=== PATIENT | female | born 1980 | race African-American/Black ===

== ENCOUNTER 2017-02-04 08:50 | Inpatient (IN) | payer OTHER ==
[2017-02-04] MEDS ORDERED: CITRIC ACID/SODIUM CITRATE 30 ML UNIT-DOSE CUP PO ONE (09:57)
[2017-02-04] MEDS ORDERED: ELECTROLYTE-148 SOLN 1,000 ML IV SCH (10:00)
[2017-02-04 10:11] VITALS: BMI 37.5
[2017-02-04 10:44] LABS: BASOPHIL 0.5 % (0-2.0); EOSINOPHIL 2.4 % (0-4.5); MCH 24.5 pg (25.7-33.7); MCHC 31.9 g/dl (32.0-36.0); MEAN CELL VOLUME 76.7 fl (80-96); MEAN PLT VOLUME 11.6 fl (7.5-11.1); NEUTROPHILS 62.6 % (42.8-82.8); PLATELET COUNT 50 K/MM3 (134-434); RDW 13.7 % (11.6-15.6); WHITE BLOOD COUNT 7.2 K/mm3 (4.0-10.0)
[2017-02-04] MEDS ORDERED: ELECTROLYTE-148 SOLN 1,000 ML IV ONE (10:45)
[2017-02-04 11:23] LABS: PLATELET ESTIMATE DECREASED (NORMAL)
[2017-02-04 11:24] LABS: PLATELET COMMENT2 FEW LARGE PLTS
[2017-02-04] MEDS ORDERED: TUBERCULIN PPD 5 TU/0.1ML SYRINGE (IN PATIENT USE ONLY) ID ONE (11:30)
--- NOTE | 2017-02-04 11:36 | HP ---
Past Medical History - Admission Chief Complaint: Previous CS x 2. 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 Maternal obesity History Source: Patient - Past Medical History ...: 4 ...Para: 3 ...Term: 3 ...: 0 ...Spon : 0 ...Induced : 0 ...Multiple Gestation: 0 ...EDC by Vin: 02/08/17 - Smoking History Smoking history: Never smoked Have you smoked in the past 12 months: No - Alcohol/Substance Use Hx Alcohol Use: No Home Medications - Allergies Allergies/Adverse Reactions: Allergies Allergy/AdvReac Type Severity Reaction Status Date / Time No Known Drug Allergies Allergy Verified 09/02/13 02:12 - Home Medications Home Medications: Ambulatory Orders Ferrous Sulfate mg PO DAILY 06/28/13 GuaiFENesin [Mucinex] 600 mg PO QID PRN #20 tablet 06/28/13 Pnv with Ca,No.71/Iron/FA [ Vitamin Tablet] 1 each PO 06/28/13 Acetaminophen [Tylenol .Regular Strength -] 650 mg PO Q4H PRN #0 tablet Ibuprofen [Motrin -] 600 mg PO Q6H PRN #0 tablet 09/05/13 Review of Systems - Review of Systems Constitutional: reports: No Symptoms Eyes: reports: No Symptoms HENT: reports: No Symptoms Neck: reports: No Symptoms Cardiovascular: reports: No Symptoms Respiratory: reports: No Symptoms Gastrointestinal: reports: No Symptoms Genitourinary: reports: No Symptoms Breasts: reports: No Symptoms Reported Musculoskeletal: reports: No Symptoms Integumentary: reports: No Symptoms Neurological: reports: No Symptoms Endocrine: reports: No Symptoms Hematology/Lymphatic: reports: No Symptoms Psychiatric: reports: No Symptoms Physical Exam - Maternity Vital Signs: Vital Signs Temperature 98.3 F 02/04/17 09:15 Pulse Rate 92 H 02/04/17 09:15 Respiratory Rate 18 02/04/17 09:15 Blood Pressure 138/72 02/04/17 09:15 O2 Sat by Pulse Oximetry (%) Constitutional: Yes: Well Nourished, No Distress, Obese Neck: Yes: WNL, Supple Cardiovascular: Yes: WNL, Regular Rate and Rhythm Lungs: Clear to auscultation Breast(s): Yes: WNL - Abdominal Exam/OB Fundal Height: 40 Number of Fetuses: Single Presentation: Vertex Contractions: No Category: I Accelerations: Non-Uniform Decelerations: None - Vaginal Exam/OB Speculum Exam: No Amniotic Membrane Status: Intact Presentation: Vertex/Position - Physical Exam Musculoskeletal: Yes: WNL Extremities: Yes: WNL Edema: No - Labs Lab Results: CBC, BMP 02/04/17 09:30 Hemorrhage Risk Assessment - Risk Factors High Risk Factors: Yes: Platelets less than 70,000 Risk Score: 2 Risk Level: High Risk Problem List - Problems (1) Previous delivery affecting , antepartum Code(s): O34.219 - MATERNAL CARE FOR UNSP TYPE SCAR FROM PREVIOUS DEL (2) Thrombocytopenia affecting , antepartum Code(s): O99.119 - OTH DIS OF BLD/BLD-FORM ORG/IMMUN MECHNSM COMP PREG,UNSP TRI D69.6 - THROMBOCYTOPENIA, UNSPECIFIED Assessment/Plan previous CS x 2 obesity Thrombocytopenia - 50 K Ho LGA Plan Repeat CS under general Hang platlets prior to CS hematology consult
[2017-02-04] MEDS ORDERED: METHYLERGONOVINE MALEATE 0.2 MG/1 ML AMP IM PRN (11:54)
[2017-02-04] MEDS ORDERED: IBUPROFEN 600 MG TABLET (FP) PO PRN (11:54)
[2017-02-04] MEDS ORDERED: D5W-LR W/ 20 UNITS OXYTOCIN 1,000 ML IV SCH (12:00)
[2017-02-04] MEDS ORDERED: ONDANSETRON 4 MG/2 ML VIAL IVPB PRN (13:02)
[2017-02-04] MEDS ORDERED: ACETAMINOPHEN 1000 MG/100 ML VIAL (NON FORMULARY) IVPB PRN (13:04)
[2017-02-04 13:19] LABS: ARTERIAL BLD GAS O2 SATURATION 23.3 % (90-98.9); ARTERIAL BLOOD GAS BASE EXCESS 0.4 meq/l (-2-2)
[2017-02-04 13:22] LABS: ARTERIAL BLOOD GAS PO2 16.5 mmHg (80-100); ARTERIAL BLOOD GAS pH 7.29 (7.35-7.45)
[2017-02-04 13:23] LABS: VENOUS BLOOD GAS HCO3 26.5 meq/L (19-25); VENOUS PH 7.35 (7.32-7.42)
--- NOTE | 2017-02-04 15:12 | CONSULT ---
Consult Consult Specialty:: Hematology Referred by:: TENISHA Reason for Consultation:: Thrombocytopenia - History of Present Illness Chief Complaint: Admitted for elective History of Present Illness: is a 36 year old Female is admitted for ( #3) and was noted to have thrombocytopenia. Hematology was consulted for thrombocytopenia. Today in the am,prior to our consultation, patient is s/p one SDU of platelets and she underwent . As per anesthesiologist , EBL was minimum and spinal was uneventful. Patient seen and examined. Patient mentioned that she followed with for her low platelets, but never did when she was not . Patient mentioned that her counts were "normal" if she is not . Denies any unusual bruises or bleeding. - Alcohol/Substance Use Hx Alcohol Use: No - Smoking History Smoking history: Never smoked Have you smoked in the past 12 months: No Home Medications - Allergies Allergies/Adverse Reactions: Allergies Allergy/AdvReac Type Severity Reaction Status Date / Time No Known Drug Allergies Allergy Verified 09/02/13 02:12 - Home Medications Home Medications: Ambulatory Orders Ferrous Sulfate mg PO DAILY 06/28/13 GuaiFENesin [Mucinex] 600 mg PO QID PRN #20 tablet 06/28/13 Pnv with Ca,No.71/Iron/FA [ Vitamin Tablet] 1 each PO 06/28/13 Acetaminophen [Tylenol .Regular Strength -] 650 mg PO Q4H PRN #0 tablet Ibuprofen [Motrin -] 600 mg PO Q6H PRN #0 tablet 09/05/13 Family Disease History - Family Disease History Family History: Denies Review of Systems - Review of Systems Constitutional: denies: Chills, Lethargy, Loss of Appetite Eyes: denies: Blurred Vision HENT: denies: Difficult Swallowing Cardiovascular: denies: Chest Pain Respiratory: denies: Cough Gastrointestinal: denies: Abdominal Pain, Melena, Rectal Bleeding Musculoskeletal: denies: Back Pain Hematology/Lymphatic: denies: Easily Bruised, Excessive Bleeding Physical Exam Vital Signs: Vital Signs Temperature 98.3 F 02/04/17 09:15 Pulse Rate 92 H 02/04/17 09:15 Respiratory Rate 18 02/04/17 09:15 Blood Pressure 138/72 02/04/17 09:15 O2 Sat by Pulse Oximetry (%) Constitutional: Yes: Other (looks tired, just arrive ppost surgery) Neck: No: Lymphadenopathy Cardiovascular: Yes: Regular Rate and Rhythm Respiratory: Yes: WNL Edema: No Labs: CBC, BMP 02/04/17 09:30 Problem List - Problems (1) Thrombocytopenia affecting , antepartum Code(s): O99.119 - OTH DIS OF BLD/BLD-FORM ORG/IMMUN MECHNSM COMP PREG,UNSP TRI D69.6 - THROMBOCYTOPENIA, UNSPECIFIED (3) Anemia Code(s): D64.9 - ANEMIA, UNSPECIFIED Qualifiers: Anemia type: unspecified type Qualified Code(s): D64.9 - Anemia, unspecified Assessment/Plan Ms. Hubbard is a a 36 year old AA woman who is s/p today, hematology called for Thrombocytopenia. As per primary team, pt already underwent surgery after receiving one SDU platelets, prior to consultation. Patient with likely chronic ITP. She did have low platelet count with the prior pregnancies in our system, high MPV, makes likely a chronic ITP (exacerbated in ). This has been her lowest.CBC on 02/03- platelets 69K. Normal coags. -recommend Stat CBC (order placed), spoke to RN of the patient. -Ordered 2 SDU platelets for now ( spoke to blood bank), they will deliver one now. -Obtain CBC one hour post the transfusion of the platelets. -CBC q8 hours. -transfusion to a goal of platelets >100K and the platelets to be maintained at 100K -Repeat Coags -Monitor for HELLP -Avoid NSAIDS Will follow closely.
[2017-02-04] MEDS: MEPERIDINE HCL CARPU-JECT 50 MG/1 ML DISP.SYRIN IM NR ×2 (16:09→20:30)
[2017-02-04 18:01] LABS: BASOPHIL 0.2 % (0-2.0); EOSINOPHIL 0.1 % (0-4.5); MCH 23.8 pg (25.7-33.7); MCHC 31.1 g/dl (32.0-36.0); MEAN CELL VOLUME 76.6 fl (80-96); MEAN PLT VOLUME 10.6 fl (7.5-11.1); NEUTROPHILS 86.4 % (42.8-82.8); PLATELET COUNT 83 K/MM3 (134-434); RDW 13.6 % (11.6-15.6); WHITE BLOOD COUNT 14.7 K/mm3 (4.0-10.0)
[2017-02-04 22:05] LABS: BASOPHIL 0.2 % (0-2.0); MCH 23.8 pg (25.7-33.7); MCHC 31.2 g/dl (32.0-36.0); MEAN CELL VOLUME 76.4 fl (80-96); NEUTROPHILS 85.9 % (42.8-82.8); RDW 13.6 % (11.6-15.6); WHITE BLOOD COUNT 14.3 K/mm3 (4.0-10.0)
[2017-02-04 22:19] LABS: PLATELET COUNT 111 K/MM3 (134-434)
[2017-02-05 02:23] LABS: BASOPHIL 0.2 % (0-2.0); EOSINOPHIL 0.1 % (0-4.5); MCH 24.1 pg (25.7-33.7); MCHC 31.5 g/dl (32.0-36.0); MEAN CELL VOLUME 76.7 fl (80-96); MEAN PLT VOLUME 10.5 fl (7.5-11.1); NEUTROPHILS 81.1 % (42.8-82.8); PLATELET COUNT 96 K/MM3 (134-434); RDW 13.6 % (11.6-15.6); WHITE BLOOD COUNT 14.2 K/mm3 (4.0-10.0)
[2017-02-05] MEDS: MEPERIDINE HCL CARPU-JECT 50 MG/1 ML DISP.SYRIN IM NR (04:00)
[2017-02-05 09:08] LABS: MCH 24.3 pg (25.7-33.7); MCHC 31.7 g/dl (32.0-36.0); MEAN CELL VOLUME 76.7 fl (80-96); MEAN PLT VOLUME 10.7 fl (7.5-11.1); RDW 13.7 % (11.6-15.6)
[2017-02-05 09:10] LABS: PLATELET COUNT 99 K/MM3 (134-434)
[2017-02-05 09:43] LABS: INR 1.04 (0.82-1.09); PROTHROMBIN TIME (PATIENT) 11.4 SEC (9.98-11.88)
[2017-02-05 09:45] LABS: ACTIVATED PTT 32.7 SECONDS (26.9-34.4)
[2017-02-05] MEDS ORDERED: ENOXAPARIN NA (PORCINE) 40 MG/0.4 ML DISP.SYRIN SQ SCH (10:00)
[2017-02-05] MEDS: oxyCODONE HCL 5 MG TABLET PO PRN ×2 (10:14→19:01)
[2017-02-05] MEDS: SIMETHICONE 80 MG TAB.CHEW (FP) PO PRN ×2 (10:19→19:01)
--- NOTE | 2017-02-05 11:13 | PN ---
Progress Note (short form) - Note Progress Note: Patient seen and examined. Feels well. Started to breast feed baby. She started to walk around. She denies any weakness, back pain. O/E: General: Patient in no acute distress Head: NC DULCE Back: No tenderness noted, no bruise found. LE: no pitting edema. Able to move extremities. Abdomen: incision, no overt bleeding noted Last Vital Signs Temp Pulse Resp BP Pulse Ox 98.4 F 71 20 130/74 02/05/17 10:00 02/05/17 10:00 02/05/17 10:00 02/05/17 10:00 Current Medications Generic Name Dose Route Start Last Admin Trade Name Freq PRN Reason Stop Dose Admin Bisacodyl 10 mg 02/05/17 11:57 Dulcolax Suppository - RC PRN PRN CONSTIPATION Diphenhydramine HCl 25 mg 02/04/17 13:02 Benadryl Injection - IVPUSH Q4H PRN Pruritis Enoxaparin Sodium 40 mg 02/05/17 10:00 Lovenox - SQ DAILY BRANDON Parenteral Electrolytes 1,000 mls @ 125 mls/hr 02/04/17 10:00 02/04/17 10:30 Plasma-Lyte 148 - IV 125 mls/hr ASDIR BRANDON Administration Dextrose/Lactated Ringer's 1,000 mls @ 125 mls/hr 02/04/17 12:00 Pitocin 20 Units In D5-Lr - IV ASDIR BRANDON Meperidine HCl 100 mg 02/04/17 12:04 02/05/17 04:00 Demerol Injection - IM 02/05/17 12:03 Not Given Q8H NR Methylergonovine Maleate 0.2 mg 02/04/17 11:54 Methergine Injection - IM Q4H PRN Excessive Bleeding (L&D) Oxycodone HCl 5 mg 02/04/17 11:54 02/05/17 10:14 Roxicodone - PO 5 mg Q4H PRN Administration PAIN LEVEL 1-5 Simethicone 80 mg 02/04/17 11:54 02/05/17 10:19 Mylicon - PO 80 mg Q4H PRN Administration GAS CBC, BMP 02/05/17 08:00 Assessment/Plan: Follow-up for Thrombocytopenia ( likely chronic ITP), patient is s/p on 02/04/2017. -serial CBC until now, around range of 96-100K ( s/p 2 SDU platelets) -will give one more SDU prior to lovenox prophylaxis administration. -Keep platelets >100 -CBC q8 hours, ordered one for 200pm. -transfusion to a goal of platelets >100K and the platelets to be maintained at 100K -Monitor for HELLP -Avoid NSAIDS The above plan was discussed with RN for the patient Follow-up with as an out patient for Thrombocytopenia ( Patient has already seen him as an OP) Will follow Problem List - Problems (1) Thrombocytopenia affecting , antepartum Code(s): O99.119 - OTH DIS OF BLD/BLD-FORM ORG/IMMUN MECHNSM COMP PREG,UNSP TRI D69.6 - THROMBOCYTOPENIA, UNSPECIFIED (3) Anemia Code(s): D64.9 - ANEMIA, UNSPECIFIED Qualifiers: Anemia type: unspecified type Qualified Code(s): D64.9 - Anemia, unspecified
[2017-02-05] MEDS ORDERED: BISACODYL 10 MG SUPP.RECT RC PRN (11:57)
[2017-02-05 13:58] LABS: ALBUMIN 2.7 g/dl (3.4-5.0); ALK PHOS 113 U/L (45-117); ANION GAP 8 (8-16); BILIRUBIN,TOTAL 0.5 mg/dL (0.2-1.0); CALCIUM 8.7 mg/dL (8.5-10.1); CO2 30 mmol/L (21-32); CREATININE 0.6 mg/dL (0.55-1.02); GLUCOSE,RANDOM 90 mg/dL (74-106); LDH 330 U/L (84-246); SGOT/AST 38 U/L (15-37); SGPT/ALT 28 U/L (12-78); TOT PROT 6.3 g/dl (6.4-8.2)
[2017-02-05 14:26] LABS: MCH 24.5 pg (25.7-33.7); MCHC 31.8 g/dl (32.0-36.0); PLATELET COUNT 112 K/MM3 (134-434); WHITE BLOOD COUNT 12.5 K/mm3 (4.0-10.0)
--- NOTE | 2017-02-05 15:05 | PN ---
Progress Note (short form) - Note Progress Note: Anesthesia POD#1 S/p Repeat C Section under spinal anesthesia with duramorph. Vss ,no N/V, eating and walking. Full extremeties strenghth . No swelling at the spinal site. platlet count is 110 k. Dominique Moore MD.
[2017-02-05] MEDS: ENOXAPARIN NA (PORCINE) 40 MG/0.4 ML DISP.SYRIN SQ SCH (19:03)
[2017-02-06] MEDS: SIMETHICONE 80 MG TAB.CHEW (FP) PO PRN ×4 (01:54→20:49)
[2017-02-06] MEDS: oxyCODONE HCL 5 MG TABLET PO PRN ×4 (01:54→20:49)
--- NOTE | 2017-02-06 02:48 | PN ---
Progress Note (SOAP) - Subjective Chief Complaint: Pt doing well - Current Medications Current Medications: Active Medications Bisacodyl (Dulcolax Suppository -) 10 mg RC PRN PRN PRN Reason: CONSTIPATION Diphenhydramine HCl (Benadryl Injection -) 25 mg IVPUSH Q4H PRN PRN Reason: Pruritis Enoxaparin Sodium (Lovenox -) 40 mg SQ DAILY BRANDON Last Admin: 02/05/17 19:03 Dose: 40 mg Parenteral Electrolytes (Plasma-Lyte 148 -) 1,000 mls @ 125 mls/hr IV ASDIR BRANDON Last Admin: 02/04/17 10:30 Dose: 125 mls/hr Dextrose/Lactated Ringer's (Pitocin 20 Units In D5-Lr -) 1,000 mls @ 125 mls/ hr IV ASDIR BRANDON Methylergonovine Maleate (Methergine Injection -) 0.2 mg IM Q4H PRN PRN Reason: Excessive Bleeding (L&D) Oxycodone HCl (Roxicodone -) 5 mg PO Q4H PRN PRN Reason: PAIN LEVEL 1-5 Last Admin: 02/06/17 01:54 Dose: 5 mg Simethicone (Mylicon -) 80 mg PO Q4H PRN PRN Reason: GAS Last Admin: 02/06/17 01:54 Dose: 80 mg - Objective Vital Signs: Vital Signs Temperature 98.7 F 02/05/17 22:00 Pulse Rate 69 02/05/17 22:00 Respiratory Rate 20 02/05/17 22:00 Blood Pressure 107/69 02/05/17 22:00 O2 Sat by Pulse Oximetry (%) Constitutional: Yes: Well Nourished, No Distress, Calm Neck: Yes: WNL Gastrointestinal: Yes: WNL, Soft Peripheral Pulses WNL: No Edema: No Psychiatric: Yes: WNL, Alert, Oriented Labs Lab Results: CBC, BMP 02/05/17 14:00 02/05/17 08:00 Problem List - Problems (1) Previous delivery affecting , antepartum Code(s): O34.219 - MATERNAL CARE FOR UNSP TYPE SCAR FROM PREVIOUS DEL (2) Thrombocytopenia affecting , antepartum Code(s): O99.119 - OTH DIS OF BLD/BLD-FORM ORG/IMMUN MECHNSM COMP PREG,UNSP TRI D69.6 - THROMBOCYTOPENIA, UNSPECIFIED Assessment/Plan POD 1 Repeat CS Plan OOB pecocet
--- NOTE | 2017-02-06 07:09 | PN ---
Post Progress Note - Subjective Subjective: Pt seen/evaluated and doing well. Pain controlled, tolerating diet. Ambulating , voiding. Platelets now 112K s/p 2 SDU transfused, appreciate hematology consultation/recommendations. VB/lochia appropriate. Type of Delivery: Repeat C/S Vital Signs: Vital Signs Temperature 98.7 F 02/05/17 22:00 Pulse Rate 69 02/05/17 22:00 Respiratory Rate 20 02/05/17 22:00 Blood Pressure 107/69 02/05/17 22:00 O2 Sat by Pulse Oximetry (%) Uterus: Yes: Fundus Firm, Fundus below umbilicus Incision: Yes: Sutures intact Abdomen/GI: Yes: Abdomen soft, Tolerating PO. No: Abdominal Distention, Tender Lochia: Yes: Rubra Lochia, amount: Small Extremities: Yes: Calves non-tender Perineum: Yes: Intact Activity: Ambulating - Labs Labs: CBC WBC 12.5 K/mm3 (4.0-10.0) H 02/05/17 14:00 RBC 3.89 M/mm3 (3.60-5.2) 02/05/17 14:00 Hgb 9.5 GM/dL (10.7-15.3) L 02/05/17 14:00 Hct 30.0 % (32.4-45.2) L 02/05/17 14:00 MCV 77.0 fl (80-96) L 02/05/17 14:00 MCH 24.5 pg (25.7-33.7) L 02/05/17 14:00 MCHC 31.8 g/dl (32.0-36.0) L 02/05/17 14:00 RDW 14.0 % (11.6-15.6) 02/05/17 14:00 Plt Count 112 K/MM3 (134-434) L 02/05/17 14:00 MPV 9.0 fl (7.5-11.1) D 02/05/17 14:00 Neutrophils % 81.1 % (42.8-82.8) 02/05/17 02:00 Lymphocytes % 9.6 % (8-40) D 02/05/17 02:00 Monocytes % 9.0 % (3.8-10.2) 02/05/17 02:00 Eosinophils % 0.1 % (0-4.5) D 02/05/17 02:00 Basophils % 0.2 % (0-2.0) 02/05/17 02:00 Platelet Estimate Decreased (NORMAL) 02/04/17 09:30 Platelet Comment No clumping noted 02/04/17 09:30 Platelet Comment Few large plts 02/04/17 09:30 Problem List - Problems (2) Thrombocytopenia affecting Code(s): O99.119 - OTH DIS OF BLD/BLD-FORM ORG/IMMUN MECHNSM COMP PREG,UNSP TRI D69.6 - THROMBOCYTOPENIA, UNSPECIFIED (3) Anemia Code(s): D64.9 - ANEMIA, UNSPECIFIED Qualifiers: Anemia type: unspecified type Qualified Code(s): D64.9 - Anemia, unspecified Assessment/Plan 36 y/o POD#2 s/p repeat delivery, thrombocytopenia - AFVSS - Platelets 112K at last check, s/p 2 SDU transfused. Appreciate hematology input. Lovenox restarted per heme/onc recommendations. Continue to monitor. - Advance diet to regular, encourage ambulation - PO pain meds - possible d/c home tomorrow if OK by hematology
[2017-02-06 08:03] LABS: MCH 24.8 pg (25.7-33.7); MCHC 32.4 g/dl (32.0-36.0); MEAN CELL VOLUME 76.6 fl (80-96); MEAN PLT VOLUME 9.8 fl (7.5-11.1); PLATELET COUNT 98 K/MM3 (134-434); RDW 13.7 % (11.6-15.6); WHITE BLOOD COUNT 10.1 K/mm3 (4.0-10.0)
--- NOTE | 2017-02-06 15:15 | PN ---
Progress Note (short form) - Note Progress Note: Hematology follow-up note S : Patient feels well today and does not have any complaints. No pain, increased bleeding, swelling, headaches etc. baby well. Last Vital Signs Temp Pulse Resp BP Pulse Ox 99 F 92 H 20 145/78 02/06/17 08:11 02/06/17 08:11 02/06/17 08:11 02/06/17 08:11 Physical exam Alert , awake PERRLA, EOMI CTA (BL), S1S2 wnl Soft abdomen No c/c/e Labs CBC, BMP 02/06/17 07:25 02/05/17 08:00 Current Medications Generic Name Dose Route Start Last Admin Trade Name Freq PRN Reason Stop Dose Admin Bisacodyl 10 mg 02/05/17 11:57 Dulcolax Suppository - RC PRN PRN CONSTIPATION Diphenhydramine HCl 25 mg 02/04/17 13:02 Benadryl Injection - IVPUSH Q4H PRN Pruritis Enoxaparin Sodium 40 mg 02/05/17 18:30 02/05/17 19:03 Lovenox - SQ 40 mg DAILY BRANDON Administration Parenteral Electrolytes 1,000 mls @ 125 mls/hr 02/04/17 10:00 02/04/17 10:30 Plasma-Lyte 148 - IV 125 mls/hr ASDIR BRANDON Administration Dextrose/Lactated Ringer's 1,000 mls @ 125 mls/hr 02/04/17 12:00 Pitocin 20 Units In D5-Lr - IV ASDIR BRANDON Methylergonovine Maleate 0.2 mg 02/04/17 11:54 Methergine Injection - IM Q4H PRN Excessive Bleeding (L&D) Oxycodone HCl 5 mg 02/04/17 11:54 02/06/17 09:31 Roxicodone - PO 5 mg Q4H PRN Administration PAIN LEVEL 1-5 Simethicone 80 mg 02/04/17 11:54 02/06/17 09:32 Mylicon - PO 80 mg Q4H PRN Administration GAS A/P : 36 y/o female with Hx of thrombocytopenia (chronic ITP?) who now has decreased platelet counts in the setting of - likely gestational thrombocytopenia superimposed on chronic ITP -her plt count is 98k today , can observe it -repeat CBC tomorrow and if stable, patient can be discharged as per her wishes with outpatient follow-up within 1 week with -advised her to avoid NSAIDS for pain as an outpatient -she does not have laboratory or clinical s/o HELLP/ eclampsia, smear reviewed by did not show schistocytes hence low concern for TTP -will follow-up on patient and her CBC tomorrow
[2017-02-06] MEDS: ENOXAPARIN NA (PORCINE) 40 MG/0.4 ML DISP.SYRIN SQ SCH (16:05)
[2017-02-07 08:42] VITALS: BP 129/79; PULSE 77; TEMP 98.1
[2017-02-07 08:55] LABS: BASOPHIL 0.7 % (0-2.0); EOSINOPHIL 3.5 % (0-4.5); MCH 24.4 pg (25.7-33.7); MCHC 31.8 g/dl (32.0-36.0); MEAN CELL VOLUME 76.9 fl (80-96); NEUTROPHILS 54.9 % (42.8-82.8); PLATELET COUNT 103 K/MM3 (134-434); RDW 13.5 % (11.6-15.6)
[2017-02-07] MEDS: ENOXAPARIN NA (PORCINE) 40 MG/0.4 ML DISP.SYRIN SQ SCH (12:02)
--- NOTE | 2017-02-07 12:28 | PN ---
Progress Note (short form) - Note Progress Note: Hematology follow-up note S : Patient feels well today and does not have any complaints. Eager to be discharged. Last Vital Signs Temp Pulse Resp BP Pulse Ox 98.1 F 77 18 129/79 02/07/17 08:41 02/07/17 08:41 02/07/17 08:41 02/07/17 08:41 Physical exam Alert , awake PERRLA, EOMI CTA (BL), S1S2 wnl Soft abdomen No c/c/e Labs CBC, BMP 02/07/17 08:00 02/05/17 08:00 Current Medications Generic Name Dose Route Start Last Admin Trade Name Freq PRN Reason Stop Dose Admin Bisacodyl 10 mg 02/05/17 11:57 Dulcolax Suppository - RC PRN PRN CONSTIPATION Diphenhydramine HCl 25 mg 02/04/17 13:02 Benadryl Injection - IVPUSH Q4H PRN Pruritis Enoxaparin Sodium 40 mg 02/05/17 18:30 02/07/17 12:02 Lovenox - SQ 40 mg DAILY BRANDON Administration Methylergonovine Maleate 0.2 mg 02/04/17 11:54 Methergine Injection - IM Q4H PRN Excessive Bleeding (L&D) Simethicone 80 mg 02/04/17 11:54 02/06/17 20:49 Mylicon - PO 80 mg Q4H PRN Administration GAS A/P : 36 y/o female with Hx of thrombocytopenia (chronic ITP?) who now has decreased platelet counts in the setting of - likely gestational thrombocytopenia superimposed on chronic ITP -her plt count is 103k today , ok to be discharged -advised her to avoid NSAIDS for pain as an outpatient -she does not have laboratory or clinical s/o HELLP/ eclampsia, smear reviewed by did not show schistocytes hence low concern for TTP -patient would like to follow with us, I have provided her with the phone number to call 's clinic to make a follow-up appointment and CBC check within the week. Pt and her are agreeable with this plan
--- NOTE | 2017-02-08 13:14 | PATH ---
Surgical Pathology Report Patient Name: EDI JORGE [facility]. Rec. #: [id number] /Age/Gender: 1980 (Age: 36) / F Account: [id number] Location: [facility] Taken: 02/04/2017 Received: 02/05/2017 Reported: 02/08/2017 Physicians: Maureen Morrow M.D. Specimen(s) Received PLACENTA Clinical History , x1, c/section x2, EDC February 08, 2017, decreased platelets Repeat c/section Final Diagnosis PLACENTA, DELIVERY: FOCALLY DISRUPTED THIRD TRIMESTER PLACENTA WITH CHRONIC DECIDUITIS, MILD PREVILLOUS, PERIVILLOUS, AND PRECHORIONIC FIBRIN DEPOSITION, THREE VESSEL UMBILICAL CORD, AND PLACENTAL MEMBRANES WITH FOCAL AMNION HYPERPLASIA. Electronically Signed Dandre Del Cid M.D. Gross Description The specimen is received fresh, labeled "placenta" and is a 513 gram, 23 x 20 x up to 2.3 cm placenta with attached membranes and umbilical cord. The attached membranes are glistening and translucent and insert marginally. The umbilical cord measures 10 cm in length and averages 1.5 cm in diameter. The cord inserts eccentrically, 7 cm to the nearest margin. No true knots or strictures are identified. Cut surface of the umbilical cord reveals 3 vessels. The surface is abbott-blue with fibrin deposition and appropriate caliber vessels. The maternal surface is red-brown with focal defects. Sectioning reveals red-brown, spongy parenchyma. No focal lesions are identified. [employer] sections are submitted in 4 cassettes as follows: 1- membrane rolls and umbilical cord; 2- 4- full thickness sections of placenta. [facility] [[email or web address]02/05/2017 [facility]/02/05/2017
== END 2017-02-07 13:20 | disposition home or self-care (01) | DRG 765 ==
LOC: JLDR 08:50 → J3W 15:42
PROVIDERS: ADMIT Obstetrics & Gynecology; ATTEND Obstetrics & Gynecology
PROC: 10D00Z1 Extraction of Products of Conception, Low, Open Approach (ICD-10-PCS; principal; 2017-02-04)
PROC: 30233R1 Transfusion of Nonautologous Platelets into Peripheral Vein, Percutaneous Approach (ICD-10-PCS; 2017-02-04)
DX: O34.211 Maternal care for low transverse scar from previous cesarean delivery (principal); O99.12 Other diseases of the blood and blood-forming organs and certain disorders involving the immune mechanism complicating childbirth; D69.3 Immune thrombocytopenic purpura; Z3A.39 39 weeks gestation of pregnancy; Z37.0 Single live birth
CPT/HCPCS: 36415; 36430; 36600; 80053; 82803; 83615; 85025; 85027; 85610; 85730; 88307-TC; P9034; P9038